=== PATIENT | male | born 1960 | race Caucasian/White ===

== ENCOUNTER 2018-01-07 17:56 | Emergency (ER) | payer OTHER | END 2018-01-07 20:23 | disposition home or self-care (01) | LOC: D.ER 17:56 | DX: S16.1XXA Strain of muscle, fascia and tendon at neck level, initial encounter (principal); V89.9XXA Person injured in unspecified vehicle accident, initial encounter; Y93.89 Activity, other specified; Y92.89 Other specified places as the place of occurrence of the external cause; S06.0X1A Concussion with loss of consciousness of 30 minutes or less, initial encounter; S00.03XA Contusion of scalp, initial encounter; I10 Essential (primary) hypertension; E11.9 Type 2 diabetes mellitus without complications ==